=== PATIENT | female | born 1945 | race African-American/Black ===

== ENCOUNTER 2019-11-14 07:28 | Outpatient (CLI) | payer MEDICAID, SELFPAY ==
--- NOTE | ~2019-11-14 | MR_ITS ---
EXAMINATION: MR brain/brain stem wo con DATE: 11/14/2019 09:01 INDICATION: Headache. TECHNIQUE: Magnetic resonance imaging (MRI) of the brain and brainstem was performed without intraven ous contrast. Sequences included sagittal and axial T1-weighted FSE, axial diffusion-weighted FS EPI, axial T2*-weighted GRE, axial T2-weighted FLAIR Propeller, and axial T2-weighted Propeller. Apparent diffusion coefficient (ADC) maps were created. COMPARISON: Head CT 11/14/2019, brain MRI 05/28/2012 FINDINGS: There is chronic volume loss in right temporoparietal occipital region with old blood produ cts. There is ex vacuo dilatation of right lateral ventricle. There is no acute ischemic infarct or a bnormal mass lesion. There are scattered areas of nonspecific increased T2-weighted signal intensity in the cerebral white matter and owen. There are likely changes of ocular lens replacement surgeries. The paranasal sinuses are clear. The mastoid air cells are normal. IMPRESSION: 1. Chronic encephalomalacia involving right temporoparietal occipital region. 2. Worsened moderate nonspecific cerebral white matter disease and pontine disease, which likely repr esents chronic small vessel ischemic disease. Reviewed, dictated and finalized at location A. IMPRESSION: 1. Chronic encephalomalacia involving right temporoparietal occipital region. 2. Worsened moderate nonspecific cerebral white matter disease and pontine dise ase, which likely represents chronic small vessel ischemic disease.
--- NOTE | ~2019-11-14 | CT_ITS ---
EXAMINATION: CTA brain carotid DATE: 11/14/2019 08:53 INDICATION: Headache. TECHNIQUE: Computed tomographic angiography (CTA) of the head was performed without and with 100 mL O mnipaque-350 intravenous contrast. CTA of the neck was performed with intravenous contrast. Automated exposure control and iterative reconstruction technique were employed. The dose-length product was 1 509.45 mGy-cm. Maximum intensity projection and volume rendered 3D-reconstructions were created by josé luis gastelum technologist on a separate workstation. COMPARISON: Brain MRI 11/14/2019, head CT 07/27/2019 FINDINGS: HEAD CTA: There is chronic volume loss involving the right temporoparietal occipital region. There ar e scattered areas of low attenuation in the cerebral white matter and owen. There is no intracranial hemorrhage, acute infarction, or abnormal intracranial mass lesion. There is ex vacuo dilatation of r ight lateral ventricle. There are likely changes of ocular lens replacement surgeries. The paranasal sinuses are clear. The mastoid air cells are normal. The vertebral arteries are codominant. There is no significant stenosis of basilar artery. There is total occlusion of right P1 posterior cerebral ar jerica segment. The posterior communicating arteries are normal. There is no significant stenosis of th e anterior or middle cerebral arteries. Anterior communicating artery is normal. There is no aneurysm . NECK CTA: There are no pathologically enlarged lymph nodes. There is no significant stenosis of the v ertebral arteries. There is mild plaque in the proximal internal carotid arteries. There is 0% steno sis of the proximal right internal carotid artery relative to normal distal artery lumen diameter (NA SCET criteria). There is 0% stenosis of the proximal left internal carotid artery relative to normal distal artery lumen diameter. There is moderate cervical spondylosis. IMPRESSION: 1. Chronic encephalomalacia involving right temporoparietal occipital region. 2. 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 3. 0% stenosis of the proximal internal carotid arteries relative to normal distal artery lumen diame ters (NASCET criteria). Reviewed, dictated and finalized at location A. IMPRESSION: 1. Chronic encephalomalacia involving right temporoparietal occipital region. 2. 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 3. 0% stenosis of the proximal internal carotid arteries relative to normal dis arminda artery lumen diameters (NASCET criteria).
[2019-11-14 08:13] LABS: Estimated Glomerular Filt Rate > 60
== END 2019-11-14 07:29 | disposition home or self-care (01) ==
PROVIDERS: PCP Internal Medicine Infectious Disease; Visit Provider Psychiatry & Neurology Neurology
DX: R51 Headache (principal); G93.89 Other specified disorders of brain; I66.21 Occlusion and stenosis of right posterior cerebral artery; R90.82 White matter disease, unspecified
CPT/HCPCS: 36415; 70496; 70498; 70551; Q9967

== ENCOUNTER 2021-08-05 08:12 | Outpatient (CLI) | payer MEDICAID, SELFPAY ==
--- NOTE | 2021-08-05 | ECG_ITS ---
Measurements Intervals [place] Rate: 68 P: 69 AK: 233 QRS: 2 QRSD: 76 T: 52 QT: 376 QTc: 401 Interpretive Statements SINUS RHYTHM WITH FIRST DEGREE AV BLOCK BASELINE ARTIFACT- I, II, III, AVR, AVL, AVF, V6 ABNORMAL ECG Electronically Signed On 08-05-2021 9:18:01 THEATRICAL VARIETY AGENT by Hiro Mi D.O.
[2021-08-05 09:27] LABS: Hematocrit 39.5 % (37.0-47.0); Hemoglobin 12.3 g/dL (12.0-15.0); Mean Corpuscular HGB Conc 31.1 g/dl (32-36); Mean Corpuscular Hemoglobin 27.3 pg (26-34); Mean Corpuscular Volume 87.6 fl (80-100); Mean Platelet Volume 12.4 fl (7.4-10.4); Platelet Count Result 132 k/mm3 (150-375); Red Blood Count 4.51 M/mm3 (4.2-5.4); Red Cell Distribution Width 14.6 % (11.5-14.5); White Blood Count 7.7 K/mm3 (4.5-10.0)
[2021-08-05 09:41] LABS: Anion Gap 9 mmol/L (8-16); Blood Urea Nitrogen 16 mg/dL (7-17); Calcium 9.4 mg/dL (8.4-10.2); Carbon Dioxide 27 mmol/L (22-30); Chloride 103 mmol/L (98-107); Estimated Glomerular Filt Rate > 60; Glucose 103 mg/dL (65-110); Potassium 4.1 mmol/L (3.4-5.0); Sodium 139 mmol/L (137-145)
== END 2021-08-05 08:13 | disposition home or self-care (01) ==
PROVIDERS: PCP Internal Medicine Infectious Disease; Visit Provider Orthopaedic Surgery
DX: Z01.818 Encounter for other preprocedural examination (principal); Z51.81 Encounter for therapeutic drug level monitoring; Z79.899 Other long term (current) drug therapy
CPT/HCPCS: 36415; 80048; 85027; 93005

== ENCOUNTER 2022-09-28 15:20 | Emergency (ER) | payer MEDICAID, SELFPAY ==
[2022-09-28] VITALS (28 sets, daily range): BP systolic 167–195; BP diastolic 79–125; PULSE 83–89; RESP 14–20; TEMP 36.3–36.8; O2SAT 91–99
--- NOTE | ~2022-09-28 | CT_ITS ---
EXAMINATION: CT brain wo con DATE: 09/28/2022 16:46 INDICATION: fall, head injury . TECHNIQUE: Computed tomography (CT) of the head was performed without intravenous contrast. The mA wa s adjusted according to patient size. Iterative reconstruction technique was employed. The dose-lengt h product was 605.33 mGy-cm. COMPARISON: None. FINDINGS: No acute intracranial hemorrhage or extra-axial fluid collection. No hydrocephalus, mass, or herniation. No acute ischemic infarct. Unremarkable dural venous sinus attenuation. No acute osseous abnormality. Right frontal scalp swelling/hematoma. The aerated spaces are clear. Moderate atrophy and chronic white matter change. Atherosclerotic intracranial calcification. Left ba jennifer ganglia calcification. Tiny, focal basal ganglia lacunar infarcts. Right temporoparietal encephal omalacia. Ex vacuo dilation of the right lateral ventricle. Bilateral lens replacements. IMPRESSION: No acute intracranial process. Reviewed, dictated and finalized at location K.
--- NOTE | ~2022-09-28 | CT_ITS ---
EXAMINATION: CT facial & cervical spine wo DATE: 09/28/2022 16:48 INDICATION: fall, head injury, hematoma to R eyebrow TECHNIQUE: Computed tomography (CT) of the maxillofacial region and cervical spine was performed with out intravenous contrast. Automated exposure control and iterative reconstruction technique were empl oyed. The dose-length product was 546.31 mGy-cm. COMPARISON: CT C-spine 07/27/2019 FINDINGS: CERVICAL: Vertebral Body Alignment: Intact. Reversed lordosis centered at C4. Craniocervical and atlantoaxial alignment: Moderate degenerative change. Alignment intact. Osseous structures/fracture: Scattered stable lytic lesions. No evidence of acute fracture. Cervical soft tissues: The paraspinal soft tissues planes are maintained. Degenerative changes: Multilevel degenerative disc disease. Multilevel mild facet arthropathy. No sev ere neural foraminal narrowing. 5 and 4 mm central protrusions at C3-4 and C4-5, respectively, causin g moderate-severe central canal stenosis. FACE: Soft Tissues: Right frontal soft tissue swelling/contusion. Facial bones: No acute fracture. No lytic or blastic process. Eyes: The globes are intact. The soft tissue planes of the orbits are maintained. Bilateral lens re placements. Paranasal Sinuses: The visualized aerated spaces are clear. Foreign Bodies: No radiopaque foreign bodies. Other Findings: None. IMPRESSION: No acute fracture or traumatic malalignment in the cervical spine. No acute facial bone fracture. Red emonstration of scattered lytic lesions in the cervical spine, consider multiple myeloma or metastati c disease. Reviewed, dictated and finalized at location K. IMPRESSION: No acute fracture or traumatic malalignment in the cervical spine. No acute fac ial bone fracture. Redemonstration of scattered lytic lesions in the cervical s pine, consider multiple myeloma or metastatic disease.
--- NOTE | ~2022-09-28 | XR_ITS ---
EXAM: XR elbow RT min 3V DATE: 09/28/2022 20:30 HISTORY: fall, pain . COMPARISON: None available. FINDINGS: Decreased mineralization. No fracture or dislocation. No lytic or blastic lesion. Joint sp aces are maintained. No erosion or periosteal change. Soft tissues within normal limits. IMPRESSION: Severe osteopenia. No acute osseous finding in the right elbow. Reviewed, dictated and finalized at location K.
--- NOTE | ~2022-09-28 | XR_ITS ---
EXAM: XR wrist RT min 3V DATE: 09/28/2022 20:30 HISTORY: fall, pain . COMPARISON: Right wrist 11/02/2016. FINDINGS: Decreased mineralization. No fracture. Scapholunate widening. No lytic or blastic lesion. Scattered degenerative changes. No erosion or periosteal change. Soft tissues within normal limits. IMPRESSION: Scapholunate widening as can be seen with scapholunate ligament injury. No acute fracture . Reviewed, dictated and finalized at location K. IMPRESSION: Scapholunate widening as can be seen with scapholunate ligament inj ury. No acute fracture.
--- NOTE | ~2022-09-28 | XR_ITS ---
EXAMINATION: XR knee RT min 4V DATE: 09/28/2022 16:00 INDICATION: Right knee injury. TECHNIQUE: 4 views of right knee were obtained. COMPARISON: Right knee radiographs 02/15/16 FINDINGS: Bone alignment is normal. No fracture. There is mild tricompartmental osteoarthritis. No kn ee joint effusion. IMPRESSION: 1. Mild right knee osteoarthritis. Reviewed, dictated and finalized at location A.
--- NOTE | ~2022-09-28 | XR_ITS ---
EXAMINATION: XR shoulder RT min 2V DATE: 09/28/2022 16:01 INDICATION: Right shoulder injury. TECHNIQUE: 3 views of right shoulder were obtained. COMPARISON: Right shoulder radiographs 03/30/2010 FINDINGS: There is a comminuted fracture of proximal right humerus with involvement of the surgical n sangeetha and articular surface. At the surgical neck, the distal fracture fragment demonstrates impaction. The glenohumeral joint is normal. There are likely changes of distal clavicle resection. IMPRESSION: 1. Comminuted two-part fracture of proximal right humerus. Reviewed, dictated and finalized at location A.
[2022-09-28] MEDS: ONDANSETRON INJ 4 MG/2 ML VIAL IV PUSH (20:05)
[2022-09-28] MEDS: MORPHINE SULFATE (*CRX) 4 MG/ML INJ IV PUSH ×2 (20:05→20:57)
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
--- NOTE | 2022-09-28 21:13 | PC.NURSE ---
Sling applied to right arm. PMS intact pre and post placement.
--- NOTE | 2022-09-28 21:18 | PC.NURSE ---
Notified Aviva HANDY of patient blood pressure 195/100. ROZINA to order home dose of BP meds.
[2022-09-28] MEDS: carvediloL 12.5 MG TABLET PO (21:27)
[2022-09-28] MEDS: KETOROLAC 15 MG/ML VIAL (*BKC) IV PUSH (22:19)
[2022-09-28] MEDS: HYDROcodone/acetaminophen (*CRX) 5-325 MG TABLET 1 TAB PO (22:20)
[2022-09-29 00:08] VITALS: BP 170/66; PULSE 84; RESP 18; O2SAT 98
== END 2022-09-29 00:05 | disposition home or self-care (01) ==
PROVIDERS: Emergency Provider Physician Assistant; PCP Internal Medicine Infectious Disease
DX: S42.201A Unspecified fracture of upper end of right humerus, initial encounter for closed fracture (principal); S63.501A Unspecified sprain of right wrist, initial encounter; S83.91XA Sprain of unspecified site of right knee, initial encounter; S00.83XA Contusion of other part of head, initial encounter; V00.831A Fall from motorized mobility scooter, initial encounter; Y92.89 Other specified places as the place of occurrence of the external cause
CPT/HCPCS: 70450; 70486; 72125; 73030; 73080; 73110; 73564; 96374; 96375; 96376; 99284; A4565; A9270; J1885; J2270; J2405

== ENCOUNTER 2023-06-28 01:07 | Day surgery (SDC) | payer MEDICAID, SELFPAY ==
--- NOTE | 2023-06-22 12:16 | PM.IMHP ---
H&P: HPI History of Present Illness Date/Time: 06/22/23 12:16 Chief Complaint: Patient has a trigger finger left 3rd. Narrative: Patient has progressive symptoms of catching locking and pain at the base of the 3rd finger she has mechanically have release finger times. She has a trigger finger left 3rd. She has had previous surgery on her right hand for trigger finger. [facility] Past Medical History Medical History (Updated 06/21/23 @ 13:15 by Juan Durán MD) Headache Hypertension Obesity Tubal ligation evaluation Surgical History Surgical History (Updated 06/21/23 @ 12:53 by Annelise Breen CMA) History of carpal tunnel surgery of right wrist Dr Durán History of hand surgery Right hand trigger finger release History of orthopedic surgery History of shoulder surgery Right RTC- Dr Durán History of splenectomy Family History Family History (Updated 06/21/23 @ 12:53 by Annelise Breen CMA) Mother Hypertension Heart disease Social History Social History (Updated 06/21/23 @ 12:54 by Annelise Breen CMA) Smoking status: Never smoker Alcohol intake: never Substance use type: does not use Lack of Transportation: No Lack of Food: Sometimes True Current Housing: I Do Not Have Housing Concerned About Future Housing: No Difficulty Paying Gas/Electric Bills: No Difficulty Paying for Meds: No Currently Unemployed: No Education: Decline to Answer Difficulty w/ Childcare or Family Care: No Living arrangements: alone Occupation/Education: retired Gender identity (if verbalized by the patient): Female Meds Home Medications and Allergies Home Medications Medication Instructions Recorded Confirmed Type aripiprazole 5 mg tablet 5 mg PO DAILY 09/28/22 06/21/23 History carvedilol 12.5 mg tablet 12.5 mg PO BID 09/28/22 06/21/23 History Allergies Allergy/AdvReac Type Severity Reaction Status Date / Time No Known Allergies Allergy Verified 06/21/23 12:49 Exam Narrative: On exam she is tender at the base of the 3rd finger. She has catching and locking and pain with manipulation. Neurologically she appears to be grossly intact. She has a healed scar on the right hand from previous trigger finger surgery. Eyes: General: appearance normal, both eyes and all related structures Neck: Neck: supple Resp: Effort & Inspection: normal respiratory effort Cardio: Rate: regular rate Rhythm: regular rhythm Assessment and Plan Assessment and plan (1) Trigger finger, left middle finger: Code(s): M65.332 - Trigger finger, left middle finger Status: Acute Assessment and Plan: The patient has a trigger finger left 3rd. It is she has had a previous release on the right hand is done well with that. She has mechanical symptoms of catching and locking. She has failed conservative treatment to date. Will proceed with release A1 pavel proceed as indicated discussed.
--- NOTE | 2023-06-26 09:26 | PC.NURSE ---
Report to the Outpatient Waiting Room, entrance under the green pavilion located off [facility], at time __0700 on date 06/28/23 . Planned Procedure Time: _0900 . Time changes happen often and if your time is changed the preop area will call you the afternoon before. - You and your visitor will be asked to self-screen and do not enter if you have any COVID symptoms. - A mask is optional within the hospital at this time. Patients may have clear liquids (water, carbonated beverages, clear teas, apple juice) until 3 hours prior to surgery ( 6 AM )with a maximum of 20 ounces. - No food from midnight until time of surgery Take the following medications with a SIP of water the morning of surgery: __ARIPIPRAZOLE,CARVEDILOL,ISOSORBIDE, SERTRALINE DO NOT STOP ANY OF YOUR OTHER PRESCRIPTION MEDICATIONS PRIOR TO SURGERY ?EXCEPT THE FOLLOWING Medications to discontinue per physician __ALL VITAMINS AND SUPPLEMENTS 3 DAYS PRE OP.LAST DOSE 06/25/23 Please no make-up, nail luxembourgish, hairspray, perfume, deodorant, or body powder the day of surgery. No jewelry (including any body piercings) or valuables the day of surgery, leave them at home. Please take a shower or bath the night before, or the morning of, surgery with an antibacterial soap. Wear comfortable, loose fitting clothing. Children are encouraged to wear pajamas. - Jewelry must be removed prior to entering the operating room. Rings and piercings that are not removed may be cut off. - The hospital will not accept responsibility for valuables. - Please leave all valuables, including medications, at home the day of surgery. If you are going home after surgery, a licensed log driver must drive you home. - NO public transportation without another adult if you receive anesthesia. - We recommend that an adult stay with you for 24 hours following discharge. - We also recommend that you do not drive, make important decision, drink alcoholic beverages, or take any drugs that were not prescribed by your health care provider for at least 24 hours after your discharge time. For Pediatric surgeries, we recommend two adults accompany the child home. Follow any additional instructions given to you from your surgeon. If you or anyone in your household have experienced Covid symptoms in the past week, please notify your surgeon or the nurse liaison at the phone number below for possible testing. Telephone instructions given to __PATIENT and asked if any additional questions and then verbalized understanding. Patient advised to call surgeon office or pre surgery nurse liaison [phone] if any additional questions.
[2023-06-26 09:43] VITALS: BMI 33.2
--- NOTE | 2023-06-28 07:00 | WPDHPUPDATE1 ---
History and Physical Update Update Date/Time: 06/28/23 07:00 History and Physical has been reviewed, including an updated exam of the patient. There are NO changes in the patient's condition. Risks, benefits, and alternatives have been discussed and questions answered. Patient agrees to proceed with procedure.
[2023-06-28 07:11] VITALS: BP 178/85; PULSE 80; RESP 18; TEMP 36.3; O2SAT 97
[2023-06-28] MEDS: ACETAMINOPHEN 500 MG TABLET 1000 MG PO (07:48)
[2023-06-28] MEDS: KETOROLAC 15 MG/ML VIAL (*BKC) IV PUSH (07:48)
[2023-06-28 08:03] LABS: Anion Gap 6 mmol/L (8-16); Blood Urea Nitrogen 24 mg/dL (7-17); Calcium 9.4 mg/dL (8.4-10.2); Carbon Dioxide 27 mmol/L (22-30); Chloride 108 mmol/L (98-107); Estimated CRCL calculation 59 ml/min; Estimated Glomerular Filt Rate > 60; Glucose 105 mg/dL (65-110); Potassium 3.8 mmol/L (3.4-5.0); Sodium 141 mmol/L (137-145)
--- NOTE | 2023-06-28 08:06 | WPDANESEPPF ---
Anes - Initial Pre Proc Eval Procedure: Operation Date: 06/28/23 09:00 Proposed Procedures p Release Left Middle Finger A-1 Krystian - Juan Durán MD Date/Time: 06/28/23 08:06 Surgeon: Juan Durán MD Pre Op Diagnosis: Lt Third Trigger Finger Patient Data Age: 77 Gender: F Height: 1.52 m Weight: 77.2 kg Allergies Allergy/AdvReac Type Severity Reaction Status Date / Time No Known Allergies Allergy Verified 06/28/23 08:05 Home Medications Medication Instructions Recorded Confirmed Type carvedilol 12.5 mg tablet 12.5 mg PO BID 09/28/22 06/28/23 History acetaminophen 500 mg capsule 1,000 mg PO Q6H PRN Pain 06/26/23 06/28/23 History aripiprazole 2 mg tablet 2 mg PO DAILY 06/26/23 06/28/23 History aspirin 81 mg tablet,delayed 81 mg PO DAILY 06/26/23 06/28/23 History release (Adult Low Dose Aspirin) cholecalciferol (vitamin D3) 25 25 mcg PO DAILY 06/26/23 06/28/23 History mcg (1,000 unit) tablet isosorbide mononitrate 30 mg 30 mg PO DAILY 06/26/23 06/28/23 History tablet,extended release 24 hr losartan 100 mg tablet 100 mg PO DAILY 06/26/23 06/28/23 History mirabegron 25 mg tablet,extended 25 mg PO DAILY 06/26/23 06/28/23 History release 24 hr (Myrbetriq) multivitamin 1 tablet PO DAILY 06/26/23 06/28/23 History pravastatin 20 mg tablet 20 mg PO DAILY 06/26/23 06/28/23 History sertraline 100 mg tablet 100 mg PO BID 06/26/23 06/28/23 History spironolactone 25 mg tablet 50 mg PO DAILY 06/26/23 06/28/23 History Laboratory Tests 06/28/23 07:36 Sodium 141 mmol/L (137-145) Potassium 3.8 mmol/L (3.4-5.0) Chloride 108 H mmol/L (98-107) Carbon Dioxide 27 mmol/L (22-30) Anion Gap 6 L mmol/L (8-16) BUN 24 H mg/dL (7-17) Creatinine 0.60 L mg/dL (0.7-1.0) Estim Creat Clear Calc 59 ml/min Estimated GFR > 60 (59 - ) Glucose 105 mg/dL (65-110) Calcium 9.4 mg/dL (8.4-10.2) Patient hx anesthesia problems: none Family hx anesthesia problems: none Results Review: All pre-operative results and documents have been reviewed as part of the pre-operative evaluation. PMFSH Past Medical History Medical History Headache Hypertension Obesity Tubal ligation evaluation Surgical History Surgical History History of carpal tunnel surgery of right wrist Dr Durán History of hand surgery Right hand trigger finger release History of orthopedic surgery History of shoulder surgery Right RTC- Dr Durán History of splenectomy Family History Family History Mother Hypertension Heart disease Social History Social History Smoking status: Never smoker Alcohol intake: never Substance use type: does not use Lack of Transportation: No Lack of Food: Sometimes True Current Housing: I Do Not Have Housing Concerned About Future Housing: No Difficulty Paying Gas/Electric Bills: No Difficulty Paying for Meds: No Currently Unemployed: No Education: Decline to Answer Difficulty w/ Childcare or Family Care: No Living arrangements: alone Occupation/Education: retired Gender identity (if verbalized by the patient): Female Spiritual care concerns: No Anes - Eval Final PreProcedure Day of Procedure 06/28/23 08:06 Patient weight: obese Heart: regular rate and rhythm Lungs: clear to auscultation Airway: Mallampati scale class II Neurological: alert and oriented Last oral intake: >/= 8 hours ASA classification: III Emergent: no Anesthetic plan: proceed Anesthesia type and monitoring: general GIVS and standard monitoring Results Review: All pre-operative results and documents have been reviewed as part of the pre-operative evaluation. Informed Consent: The patient's
[2023-06-28] MEDS: ceFAZolin 2 GM/D5W 50 ML 2 GM/50 ML BAG IVPB (08:26)
[2023-06-28] MEDS: LIDOCAINE HCL 1% LOCAL INJ 20 ML VIAL 10 ML INFILTRATE (08:39)
--- NOTE | 2023-06-28 08:45 | W.PM.PROC2 ---
Procedure Note - Detailed Date of Procedure 06/28/23 Pre-op Diagnosis Left Third Trigger Finger Post-op Diagnosis Same Procedure Performed Release A1 Pavel Left 3rd finger Surgeon Juan Durán MD Anesthesia General Indications Catching and Locking Findings Tight A1 pavel Description of Procedure Patient brought to operating room 7. A general anesthetic was administered. She was sterilely prepped and draped in usual manner. Local infiltrate placed lung line of intended incision, in line with the distal palmar crease. The local infiltrate placed. Dissection gently carried down to the A1 pavel. The neurovascular bundles were protected. This was released under direct vision full excursion of the tendon without catching was a obtain. Wounds irrigated hemostasis obtained and closed with the 3-0 Prolene. Sterile dressing applied. Estimated Blood Loss 1 Drains No Packing No Pathology None sent Complications No immediate complications Condition Stable Disposition PACU [facility] Billing Surgery - Charge Forward: Surgery Billing ([id number] Trigger Finger LEFT 3rd)
[2023-06-28 08:52] VITALS: BP 92/43; RESP 14; O2SAT 97
[2023-06-28] MEDS: LACTATED RINGERS 1,000 ML 30 ML IV CONT (08:52)
[2023-06-28 09:20] VITALS: BP 144/64; PULSE 71; RESP 16
[2023-06-28 09:50] VITALS: BP 164/72; PULSE 74; RESP 16
[2023-06-28] MEDS: oxyCODONE HCL (*CRX) 2.5 MG TAB IR PO (10:08)
== END 2023-06-28 10:16 | disposition home or self-care (01) ==
PROVIDERS: Anesthesiology; PCP Internal Medicine Infectious Disease; Visit Provider Orthopaedic Surgery
PROC: (CPT 26055; principal; 2023-06-28 09:00)
DX: M65.332 Trigger finger, left middle finger (principal); Z79.82 Long term (current) use of aspirin; I10 Essential (primary) hypertension; E66.9 Obesity, unspecified; Z68.34 Body mass index [BMI] 34.0-34.9, adult
CPT/HCPCS: 26055; 36415; 80048; A9270; J0690; J1885; J2704; J7120

== ENCOUNTER 2024-09-04 00:31 | Day surgery (SDC) | payer MEDICAID, SELFPAY ==
[2024-08-23 09:24] VITALS: BMI 33.5
--- NOTE | 2024-08-23 09:36 | PC.NURSE ---
Report to the Outpatient Waiting Room, entrance under the green pavilion located off [facility], at time _09:30am on date __09/04/24 . Planned Procedure Time: __11:30am .? Time changes happen often and if your time is changed the preop area will call you the afternoon before. - You and your visitor will be asked to self-screen and do not enter if you have any COVID symptoms. Please call surgeon if you need to reschedule. - A mask is optional within the hospital at this time. Patients may have clear liquids (water, carbonated beverages, clear teas, apple juice) until 3 hours prior to surgery with a maximum of 20 ounces. - No food from midnight until time of surgery and no smoking, or chewing tobacco (or any form of nicotine). No chewing gum, candy or mints.(0830am) Take only the following medications with a SIP of water on the morning of surgery: Coreg, Isorsorbide, Sertaline, Aripiprazole DO NOT STOP ANY OF YOUR OTHER PRESCRIPTION MEDICATIONS PRIOR TO SURGERY EXCEPT THE FOLLOWING Hold all vitamins and supplements for 3 days per anesthesiologist-date to take last dose - 08/31/24 Medications to discontinue per physician _Aspirin for 5 days prior to surgery per Dr Durán Date to take last dose 08/29/24 Please no make-up, nail tunisian, hairspray, perfume, deodorant, or body powder the day of surgery.? No jewelry (including any body piercings) or valuables the day of surgery, leave them at home.? Please take a shower or bath the night before, or the morning of, surgery with an antibacterial soap.? Wear comfortable, loose fitting clothing.? - Jewelry must be removed prior to entering the operating room.? Rings and piercings that are not removed may be cut off. - The hospital will not accept responsibility for valuables.? - Please leave all valuables, including medications, at home the day of surgery. If you are going home after surgery, a licensed over the road driver must drive you home.? - NO public transportation without another adult if you receive anesthesia. - We recommend that an adult stay with you for 24 hours following discharge. - We also recommend that you do not drive, make important decision, drink alcoholic beverages, or take any drugs that were not prescribed by your health care provider for at least 24 hours after your discharge time. Follow any additional instructions given to you from your surgeon. Telephone instructions given to __Patient and asked if any additional questions and then verbalized understanding. Patient advised to call surgeon office or pre surgery nurse liaison [phone] if any additional questions.
--- NOTE | 2024-09-03 08:17 | PM.IMHP ---
H&P: HPI History of Present Illness Date/Time: 09/03/24 08:17 Chief Complaint: Patient has a trigger thumb left. She has mechanical locking and catching of her thumb. This has been unresponsive to conservative treatment. She would like to consider surgical release. Review of Systems Musculoskeletal: Musculoskeletal: Reports arthralgias and Reports joint swelling PMFSH Past Medical History Medical History Hypertension Headache Tubal ligation evaluation Obesity Surgical History Surgical History History of hand surgery Right hand trigger finger release History of carpal tunnel surgery of right wrist Dr Durán History of shoulder surgery Right RTC- Dr Durán History of splenectomy History of orthopedic surgery Family History Family History (Updated 08/15/24 @ 10:15 by Dilia Byers CMA) Mother Hypertension Heart disease Cerebrovascular accident Social History Social History (Updated 08/15/24 @ 10:13 by Judit Canales CMA) Smoking status: Never smoker Alcohol intake: never Substance use: never Substance use type: does not use Do You Feel Safe in your Home?: Yes Lack of Transportation: No Lack of Food: Sometimes True Current Housing: I Have Housing Concerned About Future Housing: No Difficulty Paying Gas/Electric Bills: No Difficulty Paying for Meds: No Currently Unemployed: No Education: High School Diploma/GED Difficulty w/ Childcare or Family Care: No Living arrangements: alone Occupation/Education: retired Gender identity (if verbalized by the patient): Female Spiritual care concerns: No Meds Home Medications and Allergies Home Medications ?Medication ?Instructions ?Recorded ?Confirmed ?Type carvedilol 12.5 mg tablet 12.5 mg PO BID 09/28/22 08/23/24 History acetaminophen 500 mg capsule 1,000 mg PO Q6H PRN Pain 06/26/23 08/23/24 History aripiprazole 2 mg tablet 2 mg PO BID 06/26/23 08/23/24 History aspirin 81 mg tablet,delayed 81 mg PO DAILY 06/26/23 08/23/24 History release (Adult Low Dose Aspirin) cholecalciferol (vitamin D3) 25 25 mcg PO DAILY 06/26/23 08/23/24 History mcg (1,000 unit) tablet isosorbide mononitrate 30 mg 30 mg PO DAILY 06/26/23 08/23/24 History tablet,extended release 24 hr losartan 100 mg tablet 100 mg PO DAILY 06/26/23 08/23/24 History mirabegron 25 mg tablet,extended 25 mg PO DAILY 06/26/23 08/23/24 History release 24 hr (Myrbetriq) multivitamin 1 tablet PO DAILY 06/26/23 08/23/24 History pravastatin 20 mg tablet 20 mg PO DAILY 06/26/23 08/23/24 History sertraline 100 mg tablet 100 mg PO BID 06/26/23 08/23/24 History spironolactone 25 mg tablet 50 mg PO DAILY 06/26/23 08/23/24 History Allergies Allergy/AdvReac Type Severity Reaction Status Date / Time No Known Allergies Allergy Verified 08/23/24 09:18 Exam Narrative: Patient has prominence of swelling at the base of the left thumb. Neurologically she appears to be intact. She has mechanical catching and locking. Eyes: General: appearance normal, both eyes and all related structures Neck: Neck: supple Resp: Effort & Inspection: normal respiratory effort Cardio: Rate: regular rate Rhythm: regular rhythm Assessment and Plan Assessment and plan (1) Trigger thumb of left hand: Code(s): M65.312 - Trigger thumb, left thumb Status: Acute Assessment and Plan: Patient has a trigger thumb left. Spent unresponsive to conservative treatment. She would like to consider surgical release. I have discussed this with her risks, benefits, limitations, and alternatives in detail. Will proceed per her request.
--- OUTSIDE RECORDS SUMMARY | 2024-09-04 00:33 | XMS_ITS | Data Portability ---
Author Organization [facility] [place], Main Office Address [address] [place] [address] Care Team Providers Care Tube Station Attendant Name Role Phone ALL MORALEZ Primary Care Provider ALL MORALEZ Referring Provider Assessment Encounter Date Assessment Date Assessment LastModified by Organization Details LastModified Time 09/22/2022 09/22/2022 Patient returns knee pain right. Pain is localized right knee mostly medially worse with activity somewhat relieved by rest she does have some mechanical symptoms but also has some degenerative change she got good relief from the injection last time and and the medicine and she would like to continue conservative treatment this does not work next step would be an MRI scan of the knee. I injected the right knee with 20 mg Kenalog 4 cc 1% lidocaine will try tramadol or prescription drug management for pain and inflammation. I will see her back in a month for follow-up no better MRI right knee. [email or web address] Not available 09/22/2022 10:36:32 09/26/2022 09/26/2022 This note is dictated and transcribed by [employer]. Stone Crusher Operator variances may occur. Despite proofreading, typographical errors may occur. Not available 09/26/2022 14:04:39 10/07/2022 10/07/2022 77-year-old female presenting for her right shoulder and right knee. She fell off a mobility scooter on 09/28/2022, landing on her right side. She was seen at hospital and diagnosed with proximal humerus fracture, and she also reports pain in her knee. She has not had any treatments besides the narcotics that she was given at the hospital. She did have a previous rotator cuff repair on that side with Dr. Durán about 3 4 years ago. She reports her shoulder was not bothering her prior to the fall. Review of systems per patient questionnaire. Physical exam: She has tenderness palpation proximal humerus as well as some ecchymosis and swelling. She has some soreness throughout her right upper extremity as well. For the right knee, she has tenderness palpation over the lateral knee over the joint line and proximal fibula. Range of motion 0-130. Nonantalgic gait. Negative Garrett's. Ligaments stable. X-rays of the shoulder, elbow, wrist, and knee were reviewed, demonstrated a valgus impacted proximal humerus fracture. No fractures seen elsewhere. Diagnoses and treatment options were discussed in detail with the patient. We will begin her with a cuff and collar sling for her shoulder. We will also give her a prescription for meloxicam to help with the pain. She should continue icing and elevating. We discussed that she should wean off of the narcotic pain medications. With regards to her knee, we will send her to physical therapy. The meloxicam should also help with that as well. Will have her follow-up in 2-3 weeks for recheck. Not available 10/07/2022 11:30:16 11/04/2022 11/04/2022 77-year-old female presenting for follow-up of her right shoulder. She has a proximal humerus fracture being treated non operatively. She took herself out of the cuff and collar sling and put herself back in the regular shoulder sling. She reports pain is better. Rate is 5 out 10. She is is not taking any medications right now. She also has a new complaint of her left 5th middle finger. The finger had been bothering her for a while, but was aggravated after the fall that she had. It is located over the PIP joint. She has pain and stiffness with movement. No tenderness palpation of the shoulder. No pain with gentle range of motion. She has full range of motion of the elbow, wrist, and fingers on the right side. With regards her left hand, she has tenderness palpation of middle finger PIP. She has full extension, but is able to nearly make a full fist. She has no triggering and no tenderness over the flexor. X-rays of the shoulder on the right were obtained reviewed, demonstrating a proximal humerus fracture with maintenance of alignment. X-rays of the left middle finger were also obtained and reviewed, demonstrating no acute bony abnormalities. She does have some joint space narrowing and degenerative changes. We will continue conservative management for the shoulder. We will send her to physical therapy to work on some mobility and function of the shoulder. We also gave her refill of her meloxicam. For her finger, the meloxicam will help with that as well. Also recommended icing and Voltaren. She may continue activities as tolerated for the finger. Follow-up in 6 weeks. Not available 11/04/2022 12:15:20 01/19/2023 01/19/2023 Patient presents hand pain left. She jammed her 3rd finger at the PIP joint. She has got reasonable motion and strength the finger appears stable more pain with extension flexion I think she jammed her finger and strained the ligaments. This should heal with time. Recommend she continue to use it. For prescription drug management will try Voltaren for pain and inflammation. I will see her back in a month for follow-up. If she has any changes or problems she will call discussed. [email or web address] Not available 01/19/2023 13:18:22 Plan of Treatment Reminders Order Date Submit Date Provider Last Modified By Organization Details Last Modified Time Details Appointments None recorded. Lab None recorded. Referral physical therapist referral - Please schedule pt for R shoulder. thanks [email or web address] [facility], [address] [facility] [address], [place], [address], 08:52:32 physical therapist referral - Please schedule pt for R knee. thanks [facility] [place] [facility], [address], [place], [address], 13:55:08 Procedures injection/a spiration joint/bursa (PROC) - in office procedure, administere d by provider 2022 023 allison Not available 10:37:20 Surgeries None recorded. Imaging XR, hand, 3 or more view 2022 023 [email or web address] [facility] [place], [address], [place], [address], 13:41:13 XR, shoulder 2022 023 [email or web address] [facility] [place], [address], [place], [address], 3 15:54:17 Medication Orders diclofenac sodium 75 mg tablet,carolyn yed release 2022 023 [email or web address] [id number], [address] [place], [address], 13:19:03 Mobic 15 mg tablet 2022 023 [email or web address] [facility] In [facility], [address] [place] [address], [address], 3 15:56:08 Mobic 15 mg tablet 2022 023 [email or web address] [facility] [address], [address], 3 12:31:26 Kenalog 10 mg/mL suspension for injection 2022 023 [email or web address] [facility] [address], [address], 3 10:48:51 ropivacaine (PF) 5 mg/mL (0.5 %) injection solution 2022 023 [email or web address] [facility] [address], [address], 3 10:49:20 tramadol 50 mg tablet 2022 023 MARK [facility] [address] In [address] [place] [place], [address], 10:54:45 Patient TargetsNo targets recorded. Patient Instructions Encounter Date Encounter Id Patient Instructions Last Modified By Organization Details Last Modified Time 09/26/2022 [id number] x-ray bilateral feet AP, MO, Lat-weightbearing- no fracture, normal bone density, no lytic lesion, no periosteal reaction, no foreign body, spurring of the calcaneus, mild joint space narrowing at the lesser digits and minor spurring of the dorsal midfoot joints without significant sclerosis, bone cystic changes, joint space narrowing impression- osteoarthritis Not available 09/26/2022 14:06:37 Reason for Referral Physical Therapist Referral for Pain of right knee joint R knee Please schedule pt for R knee. thanks Referring Physician: Juan Larry, Orthopedic Surgery, Encounter Date: 10/07/2022 Physical Therapist Referral for Pain of right shoulder joint R shoulder Please schedule pt for R shoulder. thanks Referring Physician: Juan Larry, Orthopedic Surgery, Encounter Date: 11/04/2022 Results Created Date Observation Date Name Description Value Unit Range Abnormal Flag Note LastModifiedBy Organization Detail LastModifiedTime 08/25/19 XR, knee, 3 view No observ ation record ed. [id number] [facility] [place] [address], [place], [address], 09/14/2022 02:59:32 10/01/1909/28/2022 XR, shoul buck, 2 or more view No observ ation record ed. Not Available 09/14 14:41:21 10/01/19 23 09/28/2022 XR, elbow , 3 or more view No observ ation record ed. Not Available 09/14 14:41:21 10/01/19 23 09/28/2022 XR, wrist , 3 or more view No observ ation record ed. Not Available 09/14 14:41:21 10/01/19 23 09/28/2022 XR, knee, 4 or more view No observ ation record ed. Not Available 09/14 14:41:21 11/05/19 23 XR, shoul buck No observ ation record ed. [email or web address] [facility] [place] [address], [place], [address], 11/04/2022 10:58:35 01/20/20 23 XR, hand, 3 or more view No observ ation record ed. [email or web address] [facility] [place] [address], [place], [address], 01/19/2023 13:18:37 Result Notes None recorded. Problems Name Problem SNOMED Code Status Onset Date Resolution Date Notes Provider Name and Address Organization Details Recorded Time Spinal enthesopat hy 91937959 Active Not Available [facility] 3 02:51:13 Disorder of shoulder 396073122 Active Not Available [facility] 3 02:51:13 Derangemen t of right knee 0452820884396 9109 Active 2021 Not Available [facility] 3 02:51:13 Pain in right sacroiliac joint 8285237866402 9107 Active 2021 Not Available [facility] 3 02:51:13 Disorder of sacrum 82949182 Active Not Available [facility] 3 02:51:13 Acquired trigger finger 2218602 Active Not Available [facility] 3 02:51:13 Spinal stenosis of lumbar region 19737832 Active 2021 Not Available [facility] 3 02:51:13 Radiothera py follow-up 522189570 Active Not Available [facility] 3 02:51:13 Localized, primary osteoarthr itis of the hand 002541486 Active Not Available [facility] 3 02:51:13 Wrist joint pain 143845850 Active Not Available [facility] 3 02:51:13 Shoulder joint pain 444142641 Active Not Available [facility] 3 02:51:13 Low back pain 196915717 Active 2021 Not Available [facility] 3 02:51:14 Tear of medial meniscus of knee 287965044 Active 2021 Not Available [facility] 3 02:51:14 Enthesopat hy of hip region 56631077 Active Not Available [facility] 3 02:51:14 Localized, primary osteoarthr itis of the wrist 177931371 Active Not Available [facility] 3 02:51:14 Pain in right foot 3966718743737 07 Active 2020 Not Available [facility] 3 02:51:14 Pain in right hip joint 8989298494414 02 Active 2021 Not Available [facility] 3 02:51:14 Osteoarthr itis of right knee joint 8375674620262 00 Active 2022 Not Available [facility] 3 02:51:14 Osteoarthr itis 249926925 Active Not Available [facility] 3 02:51:14 Pain of right knee joint 2434337253502 00 Active 2021 Not Available [facility] 3 02:51:14 Lumbosacra l spondylosi s without myelopathy 68489476 Active Not Available [facility] 3 02:51:15 Disorder of bursa of shoulder region 81896780 Active Not Available [facility] 3 02:51:15 Carpal tunnel syndrome 34485824 Active Not Available [facility] 3 02:51:15 Osteoarthr itis of midfoot 988431611 Active 2020 Not Available [facility] 3 02:51:15 Brachial neuritis 07237143 Active Not Available [facility] 3 02:51:15 Spinal stenosis in cervical region 44426289 Active 2021 Not Available [facility] 3 02:51:15 Dystrophia unguium 84863184 Active 2020 Not Available [facility] 3 02:51:15 Pain in limb 24160463 Active Not Available [facility] 3 02:51:15 Pain in both feet 8463695606779 9102 Active Maye Montero MA null, [facility] [employer] [facility] 3 10:57:25 Pain of right shoulder joint 8174830245731 9100 Active 2022 Melina Reddy ATC L null, [facility] [employer] [facility] 3 11:09:02 Closed fracture of proximal right humerus 9267175599635 9105 Active 2022 Juan Larry MD [address], [place], [address] , [facility] [employer] [facility] 3 11:30:35 Pain of left hand 5654552475702 03 Active 2022 Melina Reddy ATC L null, [facility] [employer] [facility] 3 11:46:19 Pain in finger of left hand 1987475779459 05 Active 2022 Juan Larry MD [address], [place], [address] , [facility] [employer] [facility] 3 12:15:31 Problem Notes None recorded. Procedures Surgical History Date Name Laterality Status Provider Name and Address Organization Details Recorded Time 3 Nail Debridement completed Roland Garcia DPM [address], [place], [address], [facility] [employer] [facility] 09/26/2022 11:28:31 3 Ortho - Cortisone Injection completed Juan Durán MD [address], [place], [address], [facility] [employer] [facility] 09/22/2022 10:35:27 Imaging Results Imaging Date Name Status LastModified by [facility] Details LastModified Time 2022 XR, knee, 3 view completed [id number] [facility] [place] [address], [place], [address], 09/14/2022 02:59:32 09/28/2022 XR, shoulder, 2 or more view completed Information not available 09/30/2022 14:41:21 09/28/2022 XR, elbow, 3 or more view completed Information not available 09/30/2022 14:41:21 09/28/2022 XR, wrist, 3 or more view completed Information not available 09/30/2022 14:41:21 09/28/2022 XR, knee, 4 or more view completed Information not available 09/30/2022 14:41:21 11/04/2022 XR, shoulder completed [email or web address] [facility] [place] [address] [facility] [address], [place], [address], 11/04/2022 10:58:35 01/19/2023 XR, hand, 3 or more view completed [email or web address] [facility] [place] [address] [facility] [address], [place], [address], 01/19/2023 13:18:37 Procedure Notes None recorded. Medical Equipment None Reported. Allergies No known drug allergies Medications Name Sig Start Date Stop Date Status Note LastModified by Organization Details LastModified Time quetiapine 25 mg tablet 09/22 completed Not Available Not Available Not Available cyclobenzap rine 10 mg tablet 04/02 completed Not Available Not Available Not Available furosemide 40 mg tablet 04/09 completed Not Available Not Available Not Available silver sulfadiazin e 1 % topical cream APPLY TO THE AFFECTED AREAS TOPICALLY D 04/09 completed Not Available Not Available Not Available fentanyl 50 mcg/hr transdermal patch 11/21 completed Not Available Not Available Not Available prednisone 10 mg tablet PLEASE SEE ATTACHED FOR DETAILED DIRECTION S 09/22 completed Not Available Not Available Not Available oxybutynin chloride ER 15 mg tablet,exte nded release 24 hr 09/22 completed Not Available Not Available Not Available doxycycline hyclate 100 mg capsule 11/21 completed Not Available Not Available Not Available carvedilol 12.5 mg tablet TAKE 1 TABLET BY MOUTH TWICE A DAY active Not Available Not Available No t Available trazodone 50 mg tablet 11/21 completed Not Available Not Available Not Available azithromyci n 250 mg tablet 04/02 completed Not Available Not Available Not Available ibuprofen 800 mg tablet 04/02 completed Not Available Not Available Not Available hydrocodone 5 mg-acetamin ophen 325 mg tablet TAKE 1 TABLET BY MOUTH EVERY 6 HOURS 09/22 completed Not Available Not Available Not Available bupivacaine HCl 0.5 % (5 mg/mL) injection solution Take 20 mg by injection route. 10/07 completed Not Available Not Available Not Available sertraline 100 mg tablet TAKE 1 TABLET TWICE A DAY BY MOUTH IN THE MORNING FOR 90 DAYS active Not Available Not Available No t Available clonazepam 1 mg tablet 04/02 completed Not Available Not Available Not Available acetaminoph en 300 mg-codeine 30 mg tablet TAKE 1 TABLET BY MOUTH EVERY DAY NEEDED 09/22 completed Not Available Not Available Not Available ciprofloxac in 500 mg tablet TAKE 1 TABLET BY MOUTH TWICE A DAY 04/02 completed Not Available Not Available Not Available morphine ER 30 mg tablet,exte nded release 11/21 completed Not Available Not Available Not Available hydrocodone 10 mg-acetamin ophen 325 mg tablet TAKE 1 TABLET BY MOUTH EVERY 8 HOURS NEEDED FOR PAIN 09/22 completed Not Available Not Available Not Available tramadol 50 mg tablet TAKE 2 TABLETS TWICE A DAY BY ORAL ROUTE NEEDED FOR 30 DAYS. active Not Available Not Available No t Available spironolact one 25 mg tablet TAKE 2 TABLETS BY MOUTH EVERY DAY active Not Available Not Available No t Available lidocaine-p rilocaine 2.5 %-2.5 % topical cream 04/02 completed Not Available Not Available Not Available prednisone 10 mg tablets in a dose pack Take 1 tab by mouth, 3 times a day for 3 daysTake 1 tab by mouth 2 times a day for 2 daysTake 1 tab by mouth once a day for 1 day 09/22 completed Not Available Not Available Not Available meloxicam 7.5 mg tablet 11/21 completed Not Available Not Available Not Available Mobic 15 mg tablet Take 1 tablet every day by oral route. 2022 active Not Available Not Available Not Avai lable amitriptyli ne 25 mg tablet 04/09 completed Not Available Not Available Not Available lorazepam 0.5 mg tablet 10/07 completed Not Available Not Available Not Available oxycodone-a cetaminophe n 10 mg-325 mg tablet 04/02 completed Not Available Not Available Not Available trazodone 100 mg tablet 09/22 completed Not Available Not Available Not Available ropinirole 0.25 mg tablet 09/22 completed Not Available Not Available Not Available Kenalog 10 mg/mL suspension for injection Take 20 mg by injection route. 10/07 completed [facility]: [phone] Not Available Not Available Not Available amlodipine 10 mg tablet TAKE 1 TABLET BY MOUTH ONCE DAILY 10/07 completed Not Available Not Available Not Available benzonatate 100 mg capsule TAKE ONE CAPSULE BY MOUTH EVERY 8 HOURS 07/01 completed Not Available Not Available Not Available morphine 30 mg immediate release tablet 04/02 completed Not Available Not Available Not Available hydrocodone 7.5 mg-acetamin ophen 325 mg tablet 1 tablet PO q4hrs for pain active Not Available Not Available No t Available cephalexin 500 mg capsule 09/28 completed Not Available Not Available Not Available trazodone 150 mg tablet TAKE 1 TABLET BY MOUTH EVERYDAY AT BEDTIME 09/22 completed Not Available Not Available Not Available divalproex ER 500 mg tablet,exte nded release 24 hr 10/07 completed Not Available Not Available Not Available metoprolol tartrate 50 mg tablet TAKE 1 TABLET BY MOUTH TWICE A DAY 09/22 completed Not Available Not Available Not Available progesteron e micronized 200 mg capsule 04/02 completed Not Available Not Available Not Available nitroglycer in 0.4 mg sublingual tablet PLEASE SEE ATTACHED FOR DETAILED DIRECTION S 09/22 completed Not Available Not Available Not Available gabapentin 300 mg capsule 07/01 completed Not Available Not Available Not Available diclofenac sodium 75 mg tablet,carolyn yed release TAKE 1 TABLET BY MOUTH TWICE A DAY active Not Available Not Available No t Available montelukast 10 mg tablet 04/02 completed Not Available Not Available Not Available morphine ER 15 mg tablet,exte nded release 11/21 completed Not Available Not Available Not Available pravastatin 20 mg tablet TAKE 1 TABLET BY MOUTH EVERY DAY active Not Available Not Available No t Available hydrochloro thiazide 25 mg tablet TAKE 1 TABLET BY MOUTH EVERY DAY 04/02 completed Not Available Not Available Not Available diclofenac sodium 50 mg tablet,carolyn yed release 04/02 completed Not Available Not Available Not Available fentanyl 25 mcg/hr transdermal patch 11/21 completed Not Available Not Available Not Available levofloxaci n 500 mg tablet 11/21 completed Not Available Not Available Not Available oxycodone-a cetaminophe n 7.5 mg-325 mg tablet 04/02 completed Not Available Not Available Not Available methylpredn isolone 4 mg tablets in a dose pack 04/02 completed Not Available Not Available Not Available hydrocodone 10 mg-acetamin ophen 650 mg tablet TAKE 1 TABLET BY MOUTH EVERY 8 HOURS NEEDED FOR PAIN 04/02 completed Not Available Not Available Not Available oxybutynin chloride 5 mg tablet TAKE ONE TABLET BY MOUTH THREE TIMES A DAY DIRECTED FOR 30 DAYS 10/07 completed Not Available Not Available Not Available morphine 15 mg immediate release tablet 10/07 completed Not Available Not Available Not Available fentanyl 75 mcg/hr transdermal patch APPLY 1 PATCH EVERY 72 HOURS DIRECTED 04/25 completed Not Available Not Available Not Available ondansetron 4 mg disintegrat ing tablet 04/02 completed Not Available Not Available Not Available losartan 100 mg tablet TAKE 1 TABLET BY MOUTH EVERY DAY active Not Available Not Available No t Available fluticasone propionate 50 mcg/actuati on nasal spray,suspe nsion SPRAY 2 SPRAYS BY INTRANASA L ROUTE EVERY DAY DIRECTED active Not Available Not Available No t Available sertraline 50 mg tablet 04/02 completed Not Available Not Available Not Available Vitamin B-12 1,000 mcg tablet 04/02 completed Not Available Not Available Not Available Ventolin HFA 90 mcg/actuati on aerosol inhaler 04/02 completed Not Available Not Available Not Available neomycin 3.5 mg/g-polymy wang B 10,000 unit/g-dexa meth 0.1 % eye oint 04/02 completed Not Available Not Available Not Available divalproex ER 250 mg tablet,exte nded release 24 hr TAKE ONE TABLET BY MOUTH ONCE DAILY AT BEDTIME FOR 30 DAYS 10/07 completed Not Available Not Available Not Available cyclobenzap rine 5 mg tablet 10/07 completed Not Available Not Available Not Available Restasis 0.05 % eye drops in a dropperette 04/02 completed Not Available Not Available Not Available aripiprazol e 5 mg tablet TAKE 1 TABLET BY MOUTH EVERYDAY AT BEDTIME 10/07 completed Not Available Not Available Not Available Klor-Con M20 mEq tablet,exte nded release TAKE 1 TABLET BY MOUTH EVERY DAY WITH HYDROCHLO ROTHIAZID E 04/02 completed Not Available Not Available Not Available topiramate 50 mg tablet 10/07 completed Not Available Not Available Not Available nitrofurant oin monohydrate /macrocryst als 100 mg capsule 10/07 completed Not Available Not Available Not Available duloxetine 60 mg capsule,del ayed release TAKE ONE CAPSULE BY MOUTH EVERY DAY 04/02 completed Not Available Not Available Not Available fentanyl 12 mcg/hr transdermal patch 11/21 completed Not Available Not Available Not Available lidocaine (PF) 10 mg/mL (1 %) injection solution In office injection administe red by the provider 07/01 completed [facility]: [phone] Not Available Not Available Not Available aripiprazol e 2 mg tablet TAKE 1 TABLET BY MOUTH EVERY DAY BEFORE MEALS active Not Available Not Available No t Available Pataday 0.2 % eye drops 04/02 completed Not Available Not Available Not Available FeroSul 325 mg (65 mg iron) tablet active Not Available Not Available Not Available oxycodone 10 mg tablet 04/02 completed Not Available Not Available Not Available cholecalcif jean (vitamin D3) 50 mcg (2,000 unit) capsule TAKE 1 CAPSULE BY MOUTH EVERY DAY BEFORE MEALS FOR 30 DAYS 10/07 completed Not Available Not Available Not Available Toviaz 8 mg tablet,exte nded release 10/07 completed Not Available Not Available Not Available Gavilyte-C 240 gram-22.72 gram-6.72 gram-5.84 gram oral solution 09/22 completed Not Available Not Available Not Available ropivacaine (PF) 5 mg/mL (0.5 %) injection solution Take 20 mg by injection route. 10/07 completed [facility] [phone] Not Available Not Available Not Available Myrbetriq 25 mg tablet,exte nded release TAKE 1 TABLET BY MOUTH EVERY DAY DIRECTED active Not Available Not Available No t Available Vitals Date Recorded Body height Provider Name an d Address Organization Details Last Updated DateTime 09/22/2022 152.4 cm Mel Courtneyrosa m Vanessa [facility] [employer] [facility] 09/22/2022 10:02:36 Date Recorded Body height Provider Name an d Address Organization Details Last Updated DateTime 09/26/2022 152.4 cm Maye Montero MA [facility] [employer] [facility] 09/26/2022 10:57:30 Date Recorded Body height Body mass index (BMI) Body weight Provider Name and Address Organization Details Last Updated DateTime 10/07/2022 152.4 cm 35.2 kg/m2 15971.63 danica Mel Irwin Vanessa [facility] [employer] [facility] 10/07/2022 10:51:13 Date Recorded Body height Body mass index (BMI) Body weight Provider Name and Address Organization Details Last Updated DateTime 11/04/2022 152.4 cm 36.1 kg/m2 35175.59 danica Stephanoriana Alida [facility] [employer] [facility] [employer] [facility] 11/04/2022 10:58:20 Date Recorded Body height Body mass index (BMI) Body weight Provider Name and Address Organization Details Last Updated DateTime 01/19/2023 152.4 cm 35.2 kg/m2 07119.63 danica Collins [facility] [employer] 01/19/2023 12:48:52 Social History Question Answer Notes LastModified by Organizat ion Details LastModified Time Tobacco Smoking Status Never Smoker Not Available [facility] 09/14/2022 02:39:40 What Is Your Level Of Alcohol Consumption? None [id number] Information not available 09/14/2022 Sex: Unknown Functional Status None recorded. Mental Status None recorded. Family History Relationship Description Onset Age of this Age Resolved Age Notes LastModified by Organization Details LastModified Time Father Heart disease [id number] Not available 09/14/2022 02:44:58 Father Family history of malignant neoplasm [id number] Not available 09/14/2022 02:44:58 Mother Family history of stroke [id number].559 [id number] Not available 09/14/2022 02:44:59 Unspecified Relation Deep venous thrombosis [id number] [id number] Not available 09/14/2022 02:44:59 Unspecified Relation Diabetes mellitus [id number].644 [id number] Not available 09/14/2022 02:44:59 Unspecified Relation Kidney disease MIGRATION.731 [id number] Not available 09/14/2022 02:44:59 Medical History Condition Response ARTHRITIS Y HEADACHES/MIGRAINES Y URINARY/BLADDER/KIDNEY PROBLEMS Y HYPERTENSION Y Gynecological HistoryNo gynecological history recorded. Obstetrics History GPAL:G 0 P 0 0 0 0 Past Encounters Encounter ID Performer Location Encounter Start Date Encounter Closed Date Diagnosis/Indication Diagnosis SNOMED-CT Code Diagnosis ICD10 Code Diagnosis Note [id number] [facility] [address] [place], [place] [address] 09/28/2020 00:00:00 10/02/2020 09:57:06 [id number] [facility] [address] [place] [address] 07/01/2021 00:00:00 07/01/2021 15:04:45 [id number] [facility] [address] [place] [address] 07/27/2021 00:00:00 07/27/2021 15:19:17 [id number] [facility] [place] [address] [place] [address] 08/24/2021 00:00:00 08/24/2021 15:38:25 [id number] [facility] [place] [address] [place] [address] 09/27/2021 00:00:00 09/27/2021 13:48:20 [id number] [facility] [place] [address] [place] [address] 02/07/2022 00:00:00 02/07/2022 11:58:02 [id number] [facility] [place] [address] [place] [address] 03/07/2022 00:00:00 03/07/2022 11:14:48 [id number] [facility] [place] [address] [place] [address] 2022 00:00:00 2022 11:19:59 [id number] Juan Durán MD [facility] [place] [address] [place] [address] 09/22/2022 09:39:35 09/22/2022 11:05:01 Pain in right hip joint [id number] 66939 M25.551 Pain of ri ght knee joint 9872972817 55712 M25.561 Derangemen t of right knee 4699206924 4822797 M23.91 Tear of me dial meniscus of knee 106321633 S83.241D Osteoarthr itis of right knee joint 3189695805 03525 M17.11 [id number] Roland Garcia DPM [facility] [place] [address] [place] [address] 09/26/2022 10:46:29 09/26/2022 14:10:32 Pain in both feet 0554368380 9128347 M79.671 M79.672 as above Osteoarthritis 560682894 M19.90 both feet xrays reviewedRe viewed options with the patientCan supportive shoe gear and recommend over-the-c ounter orthoticsA nti-inflam matories otcrice therapyx-r ays reviewed with the patientwil l monitor as needed Dystrophia unguium 36514 009 L60.3 Nails 1 through 10 were debrided with sharp mechanical debridemen t without incident. Nails were debrided and greater than 50% length and thickness where needed. [id number] Juan Larry MD [facility] [place] [address] [place] [address] 10/07/2022 10:46:19 10/07/2022 11:20:24 Pain of right shoulder joint 3530038978 2407698 M25.511 Pain of ri ght knee joint 9392883163 46516 M25.561 Closed fra cture of proximal right humerus 7313536287 0920493 S42.201A [id number] Juan Larry MD [facility] [place] [address] [place] [address] 11/04/2022 10:55:27 11/04/2022 12:00:21 Pain of right shoulder joint 2217277340 8389489 M25.511 Pain of ri ght knee joint 7039174794 83672 M25.561 Closed fra cture of proximal right humerus 7052645919 5297536 S42.201A Pain of left hand 218635 7340 52830 M79.642 Pain in fi nger of left hand 6767705970 85427 M79.645 [id number] Juan Durán MD [facility] [place] [address] [place] [address] 01/19/2023 12:19:35 01/19/2023 13:41:13 Pain of left hand [id number] 53799 M79.642 Health Concerns Section Related Observation LastModified by Organization Detai ls LastModified Time None Recorded Concern Status LastModified by Organization Details LastModified Time None Recorded Advance Directives Directive None Recorded Payers Encounter Date Sequence Insurance Name Policy Number Policy Lu Covered Member ID Lu Member ID Guarantor Name 09/22/2022 1 [place] [facility] Rosa Horan [id number] Rosa Horan 09/26/2022 1 [place] [facility] Rosa Horan [id number] Rosa Horan 10/07/2022 1 [place] [facility] Rosa Horan [id number] Rosa Horan 11/04/2022 1 [place] [facility] Rosa Horan [id number] Rosa Horan 01/19/2023 1 [place] [facility] Rosa Horan [id number] Rsoa Horan Notes Date Note Type Note Provider Name and Address Organization Details Recorded Time 09/22/2022 text/html KneeReported bypatient.Location: right Quality:aching; throbbing; dull Severity:moderate Duration:continuous since onset Timing:chronic Alleviating Factors:sitting; lying down; rest; elevation Aggravating Factors:bending/squ atting; weightbearing Associated Symptoms:no weakness; no numbness; no tingling; no redness; no ecchymosis; no catching/locking; no popping/clicking; no buckling; no instability; no radiation down leg; no drainage; no fever; no chills; no weight loss; no change in bowel/bladder habits;swelling;war mth;grinding Juan Durán MD [address], [facility] [address], [place], [address], [employer] 09/22/2022 10:54:46 09/26/2022 text/html . Patient is a 77-year-old female who presents the office with complaints of bilateral foot pain to the midfoot and forefoot. Patient states that she has I mild throbbing pain in both of her feet daily. Patient states the pain is worse at night. Patient denies any wounds or injury of her foot. Patient denies any other pedal complaints. Roland Garcia DPM [address], [facility] [address], [place], [address], [employer] 09/26/2022 14:07:33 01/19/2023 text/html Patient returns contusion left hand. She is tender left hand at the PIP joint 3rd finger she has had pain now for several months worse with activity somewhat relieved by rest she has pain with most motion. Juan Durán MD [address], [facility] [address], [place], [address], [employer] 01/19/2023 13:19:01 OBGyn Episode No OBEpisode recorded.
--- OUTSIDE RECORDS SUMMARY | 2024-09-04 00:34 | XMS_ITS | Clinical Summary ---
Author Organization [facility] Address [facility] [place] [address] Care Team Providers Care [employer] Name Role Phone Non-Staff, Provider Primary Care Provider Unavai lable Allergies No known active allergies Medications ARIPiprazole (ABILIFY) 2 MG tablet Take 1 tablet (2 mg total) by mouth daily. 06/25/2024 Active diclofenac EC (VOLTAREN) 75 MG tablet Take 1 tablet (75 mg total) by mouth 2 (two) times daily. 06/26/2024 Active isosorbide mononitrate ER (IMDUR) 30 MG 24 hr tablet Take 1 tablet (30 mg total) by mouth daily. 06/20/2024 Active losartan (COZAAR) 100 MG tablet Take 1 tablet (100 mg total) by mouth daily. 06/08/2024 Active MYRBETRIQ 50 MG 24 hr tablet Take 1 tablet (50 mg total) by mouth daily. 05/20/2024 Active pravastatin (PRAVACHOL) 20 MG tablet Take 1 tablet (20 mg total) by mouth daily. Active sertraline (ZOLOFT) 100 MG tablet Take 2 tablets (200 mg total) by mouth daily. Active spironolactone (ALDACTONE) 25 MG tablet Take 2 tablets (50 mg total) by mouth daily. 06/11/2024 Active traMADol (ULTRAM) 50 MG tablet Take 2 tablets (100 mg total) by mouth 2 (two) times daily as needed for Pain. Active Encounters Date Type Department Care Team Description 06/28/2024 5:38 PM LEGAL INSTRUMENTS EXAMINER - 06/28/2024 8:25 PM [facility] Emergency [facility] [place] [address] Anshul Daly MD Chest Pain Discharge Disposition: Home or Self Care (Routine Discharge) 06/28/2024 Travel from Last 3 Months Social History Tobacco Use Types Packs/Day Years Used Date Smoking Tobacco: Never Smokeless Tobacco: Never Tobacco Cessation:Counseling Given: Not Answered Alcohol Use Standard Drinks/Week Comments Not Currently 0 (1 standard drink = 0.6 oz pur e alcohol) Comments Unknown Sex and Gender Information Value Date Recorded Sex Assigned at Not on file Legal Sex Female 6:15 PM CDT Gender Identity Not on file Sexual Orientation Not on file Last Filed Vital Signs Vital Sign Reading Time Taken Comments Blood Pressure 141/67 06/28/2024 8:00 PM LEGAL INSTRUMENTS EXAMINER Pulse 71 06/28/2024 8:00 PM LEGAL INSTRUMENTS EXAMINER Temperature 36.1 C (97 F) 06/28/2024 5:25 PM LEGAL INSTRUMENTS EXAMINER Respiratory Rate 17 06/28/2024 8:00 PM LEGAL INSTRUMENTS EXAMINER Oxygen Saturation 96% 06/28/2024 8:00 PM LEGAL INSTRUMENTS EXAMINER Inhaled Oxygen Concentration - - Weight 99.3 kg (219 lb) 06/27/2007 4:54 AM LEGAL INSTRUMENTS EXAMINER Height 152.4 cm (5') 06/28/2024 5:25 PM LEGAL INSTRUMENTS EXAMINER Body Mass Index 37.59 06/27/2007 4:54 AM LEGAL INSTRUMENTS EXAMINER Plan of Treatment Health Maintenance Due Date Last Done Comments Meningococcal Vaccine (1 - Risk 2-dose series) 1945 Meningococcal B Vaccine (1 of 5 - Increased Risk) 1953 DTaP, Tdap and Td Vaccines (1 - Tdap) 1962 Zoster Vaccines (1 of 2) 1993 Dexa Scan (General) 2008 RSV Immunization or 60+ Years (1 - 1-dose 75+ series) 2018 COVID-19 Vaccine ( season) 2024 05/22/2023, 09/14/2021, 09/28/2020 Pneumococcal Vaccine: 65+ Years Completed 07/30/2019, 03/08/2017, 07/17/2008 Influenza Adult Completed 04/04/2024, 1108/2022, 05/27/2022, Additional history exists RSV Immunizations Under 20 Months Aged Out No longer eligible based on patient's age to complete this topic Procedures Procedure Name Priority Date/Time Associated Diagnosis Comments TROPONIN, QUANT STAT 06/28/2024 7:27 PM LEGAL INSTRUMENTS EXAMINER ECG 12-LEAD STAT 06/28/2024 7:23 PM LEGAL INSTRUMENTS EXAMINER XR CHEST PORTABLE STAT 06/28/2024 5:4 2 PM LEGAL INSTRUMENTS EXAMINER ECG 12-LEAD STAT 06/28/2024 5:25 PM LEGAL INSTRUMENTS EXAMINER TROPONIN, QUANT STAT 06/28/2024 5:21 PM LEGAL INSTRUMENTS EXAMINER COMPREHENSIVE METABOLIC PANEL STAT 06/28/2024 5:21 PM LEGAL INSTRUMENTS EXAMINER CBC W/DIFF AUTOMATED STAT 06/28/2024 5:21 PM LEGAL INSTRUMENTS EXAMINER from Last 3 Months Results * TROPONIN, QUANT (06/28/2024 7:27 PM LEGAL INSTRUMENTS EXAMINER) Only the most recent of2 resultswithin the time period is included. TROPONIN I HIGH SENSITIVITY 6 <54 ng/L 06/28/2024 8:05 [address] LEGAL INSTRUMENTS EXAMINER [facility] Comment: HIGH DOSES OF BIOTIN, TROPONIN-SPECIFIC AUTOANTIBODIES, AND ANTIBODY THERAPY CONTAINING HAMA MAY INTERFERE WITH THIS TEST RESULT. CORRELATION TO CLINICAL HISTORY AND PRESENTATION RECOMMENDED. 06/28/2024 7:27 PM LEGAL INSTRUMENTS EXAMINER Anshul Daly MD LABORATORY Final Result [facility] [address] [place] [address], [place] [phone] * ECG 12 lead (06/28/2024 7:23 PM LEGAL INSTRUMENTS EXAMINER) Only the most recent of2 resultswithin the time period is included. 06/28/2024 7:23 PM LEGAL INSTRUMENTS EXAMINER Narrative [facility] JILLIAN DOVER) RAD - 06/29/2024 10:12 AM LEGAL INSTRUMENTS EXAMINER [facility] Test Date: 2024-06-28 Pat Name: EVON DOWNEY Department: 41 Room: EXAM06 Gender: Female Breast Splitter: : 1945 Requested By: IKER EMERSON Order Number: [id number] Reading MD: Riky Hooker Measurements Intervals Raymond Rate: 71 P: 48 WV: 181 QRS: 15 QRSD: 84 T: 53 QT: 399 QTc: 436 Interpretive Statements SINUS RHYTHM Compared to ECG 06/28/2024 17:25:49 No significant changes L INSTRUMENTS EXAMINER Procedure Note Riky Hooker MD - 06/29/2024 [facility] [address] [place] [address] Test Date: 2024-06-28 Pat Name: EVON DOWNEY Department: 41 Room: EXAM06 Gender: Female Breast Splitter: : 1945 Requested By: IKER EMERSON Order Number: [id number] Reading MD: Riky Hooker Measurements Intervals Raymond Rate: 71 P: 48 WV: 181 QRS: 15 QRSD: 84 T: 53 QT: 399 QTc: 436 Interpretive Statements SINUS RHYTHM Compared to ECG 06/28/2024 17:25:49 No significant changes L INSTRUMENTS EXAMINER us Anshul Daly MD ECG ORDERABLES Final Result [facility] * XR CHEST PORTABLE (06/28/2024 5:42 PM LEGAL INSTRUMENTS EXAMINER) Anatomical Region Laterality Modality Chest Radiographic Makenzie ging 06/28/2024 5:45 PM LEGAL INSTRUMENTS EXAMINER Impressions 06/28/2024 5:45 PM LEGAL INSTRUMENTS EXAMINER IMPRESSION: No active cardiopulmonary disease. Ordered By: IKER EMERSON Interpreted By: Ibrahima Carter MD, 06/28/2024 5:45 PM Narrative 06/28/2024 5:45 PM LEGAL INSTRUMENTS EXAMINER [address] [address] 06/28/2024, 1728 hours. HISTORY: Chest pain. EXAM: Portable erect AP chest. No comparison. FINDINGS: The lungs are clear of active infiltrates. The heart size and pulmonary vascularity are within normal limits. No pleural effusion. No pneumothorax. Mild scoliosis. Procedure Note Ibrahima Carter MD - 06/28/[address] [address] 06/28/2024, 1728 hours. HISTORY: Chest pain. EXAM: Portable erect AP chest. No comparison. FINDINGS: The lungs are clear of active infiltrates. The heart size andpulmonary vascularity are within normal limits. No pleural effusion. Nopneumothorax. Mild scoliosis. IMPRESSION: No active cardiopulmonary disease. Ordered By: IKER EMERSON Interpreted By: Ibrahima Carter MD, 06/28/2024 5:45 PM Anshul Daly MD GENERAL IMAGING Final Result * (ABNORMAL) COMPREHENSIVE METABOLIC PANEL (06/28/2024 5:21 PM LEGAL INSTRUMENTS EXAMINER) GLUCOSE 113(H) 70 - 99 MG/DL 06/28/2024 6:05 PM LEGAL INSTRUMENTS EXAMINER [facility] BUN 27(H) 7 - 18 MG/DL 06/28/2024 6:05 PM LEGAL INSTRUMENTS EXAMINER [facility] CREATININE S/P/B 0.87 0.55 - 1.02 MG/DL 06/28/2024 6:05 PM LEGAL INSTRUMENTS EXAMINER [facility] SODIUM S/P/B 140 136 - 145 MMOL/L 06/28/2024 6:05 PM [facility] POTASSIUM S/P/B 3.3(L) 3.5 - 5.1 MMOL/L 06/28/2024 6:05 PM [facility] CHLORIDE S/P/B 107 97 - 115 MMOL/L 06/28/2024 6:05 PM [facility] CO2 28.3 21 - 32 MMOL/L 06/28/2024 6:05 PM [facility] CALCIUM S/P/B 8.8 8.5 - 10.1 MG/DL 06/28/2024 6:05 PM [facility] BILIRUBIN TOTAL S/P/B 0.3 0.2 - 1.2 MG/DL 06/28/2024 6:05 PM [facility] Comment: THIS ASSAY IS NOT RECOMMENDED FOR PATIENTS UNDERGOING TREATMENT WITH ELTROMBOPAG DUE TO THE POTENTIAL FOR FALSELY ELEVATED RESULTS. TOTAL PROTEIN S/P/B 7.3 6.4 - 8.2 G/DL 06/28/2024 6:05 PM [facility] ALBUMIN S/P/B 3.6 3.4 - 5.0 G/DL 06/28/2024 6:05 PM [facility] AST 25 15 - 37 U/L 06/28/2024 6:05 PM [facility] ALT 23 14 - 55 U/L 06/28/2024 6:05 PM [facility] ALKALINE PHOSPHATASE S/P/B 85 50 - 136 U/L 06/28/2024 6:05 PM [facility] ANION GAP 4.7 2 - 10 MMOL/L 06/28/2024 6:05 PM [facility] BUN CREATININE RATIO 31.0(H) 6 - 26 06/28/2024 6:05 PM [facility] A/G RATIO 1.0 1.0 - 2.0 RATIO 06/28/2024 6:05 PM [facility] GFR ESTIMATE 67(L) >90 ML/MIN/1.7 3 M2 06/28/2024 6:05 PM [facility] Comment: NOTE: eGFR is not calculated for patients <18 years of age or gender unknown. This is an estimated GFR calculation using the new CKD EPI creatinine equation without race and so does not require a correction factor for race. This estimated GFR should not be used for calculating drug doses. 06/28/2024 5:21 PM LEGAL INSTRUMENTS EXAMINER us Anshul Daly MD LABORATORY Final Result [facility] [address] [place] [address], * (ABNORMAL) CBC W/DIFF AUTOMATED (06/28/2024 5:21 PM LEGAL INSTRUMENTS EXAMINER) WBC 7.84 4.5 - 11.0 x10'3/uL 06/28/2024 6:04 PM [facility] RBC 4.35 4.20 - 5.40 x10'6/uL 06/28/2024 6:04 PM [facility] HGB 11.6(L) 12.0 - 16.0 G/DL 06/28/2024 6:04 PM [facility] HCT 37.4(L) 38.0 - 48.0 % 06/28/2024 6:04 PM [facility] MCV 86.0 81.0 - 99.0 FL 06/28/2024 6:04 PM [facility] MCH 26.7(L) 27.0 - 31.0 PG 06/28/2024 6:04 PM LEGAL INSTRUMENTS EXAMINER [facility] MCHC 31.0(L) 32.0 - 36.0 G/DL 06/28/2024 6:04 PM [facility] RDW 14.0 11.5 - 14.5 % 06/28/2024 6:04 PM [facility] PLT 164 130 - 400 x10'3/uL 06/28/2024 6:04 PM [facility] MPV 12.7(H) 9.3 - 12.2 FL 06/28/2024 6:04 PM [facility] DIFFERENTIAL TYPE AUTOMATED DIFFERENTIAL 06/28/2024 6:04 PM [facility] NEUTROPHILS % 42.2 % 06/28/2024 6:04 PM [facility] LYMPHOCYTES % 48.2 % 06/28/2024 6:04 PM [facility] MONOCYTES % 5.7 % 06/28/2024 6:04 PM [facility] EOSINOPHILS 3.2 % 06/28/2024 6:04 PM [facility] BASOPHILS 0.4 % 06/28/2024 6:04 PM [facility] IMMATURE GRANS % 0.3 % 06/28/20 6:04 PM [facility] ABS. NEUTROPHILS 3.31 1.80 - 7.70 x10'3/uL 06/28/2024 6:04 PM [facility] ABS. LYMPHOCYTES 3.78 1.00 - 4.80 x10'3/uL 06/28/2024 6:04 PM [facility] ABS. MONOCYTES 0.45 0.24 - 0.86 x10'3/uL 06/28/2024 6:04 PM [facility] ABS. EOSINOPHILS 0.25 0.04 - 0.36 x10'3/uL 06/28/2024 6:04 PM LEGAL INSTRUMENTS EXAMINER [facility] ABS. BASOPHILS 0.03 0.01 - 0.08 x10'3/uL 06/28/2024 6:04 PM LEGAL INSTRUMENTS EXAMINER [facility] ABS. IMMATURE GRANULOCYTES 0.02 0.00 - 0.49 x10'3/uL 06/28/2024 6:04 PM LEGAL INSTRUMENTS EXAMINER [facility] 06/28/2024 5:21 PM LEGAL INSTRUMENTS EXAMINER us Anshul Daly MD LABORATORY Final Result [facility] [address] [place] [address], [place] [phone] from Last 3 Months Insurance MEDICAID Care Teams [employer] Relationship Specialty Start Date End Date Non-Staff, Provider PCP - General UNKNOWN PHYSICIAN SPECIALTY 06/28/24
[2024-09-04] MEDS: LACTATED RINGERS 1,000 ML 30 ML IV CONT (09:50)
[2024-09-04] MEDS: ACETAMINOPHEN 500 MG TABLET 1000 MG PO (10:00)
[2024-09-04] MEDS: KETOROLAC 15 MG/ML VIAL (*BKC) IV PUSH (10:00)
--- NOTE | 2024-09-04 10:14 | WPDHPUPDATE1 ---
History and Physical Update Update Date/Time: 09/04/24 10:14 History and Physical has been reviewed, including an updated exam of the patient. There are NO changes in the patient's condition. Risks, benefits, and alternatives have been discussed and questions answered. Patient agrees to proceed with procedure.
--- NOTE | 2024-09-04 10:30 | P.PNAN_ITS ---
Anes - Initial Pre Proc Eval Procedure: Operation Date: 09/04/24 11:30 Proposed Procedures p Release A-1 Krystian Left Thumb - Juan Durán MD Date/Time: 09/04/24 10:30 Surgeon: Juan Durán MD Pre Op Diagnosis: Left Thumb Trigger Finger Patient Data Age: 79 Gender: F Height: 1.52 m Weight: 78 kg Allergies Allergy/AdvReac Type Severity Reaction Status Date / Time No Known Allergies Allergy Verified 09/04/24 10:26 Home Medications ?Medication ?Instructions ?Recorded ?Confirmed ?Type carvedilol 12.5 mg tablet 12.5 mg PO BID 09/28/22 09/04/24 History acetaminophen 500 mg capsule 1,000 mg PO Q6H PRN Pain 06/26/23 08/23/24 History aripiprazole 2 mg tablet 2 mg PO BID 06/26/23 09/04/24 History aspirin 81 mg tablet,delayed 81 mg PO DAILY 06/26/23 09/04/24 History release (Adult Low Dose Aspirin) cholecalciferol (vitamin D3) 25 25 mcg PO DAILY 06/26/23 09/04/24 History mcg (1,000 unit) tablet isosorbide mononitrate 30 mg 30 mg PO DAILY 06/26/23 09/04/24 History tablet,extended release 24 hr losartan 100 mg tablet 100 mg PO DAILY 06/26/23 09/04/24 History mirabegron 25 mg tablet,extended 25 mg PO DAILY 06/26/23 09/04/24 History release 24 hr (Myrbetriq) multivitamin 1 tablet PO DAILY 06/26/23 09/04/24 History pravastatin 20 mg tablet 20 mg PO DAILY 06/26/23 09/04/24 History sertraline 100 mg tablet 100 mg PO BID 06/26/23 09/04/24 History spironolactone 25 mg tablet 50 mg PO DAILY 06/26/23 09/04/24 History Laboratory Tests 09/04/24 10:15 Sodium Pending Potassium Pending Chloride Pending Carbon Dioxide Pending Anion Gap Pending BUN Pending Creatinine Pending Estim Creat Clear Calc Pending Estimated GFR Pending Glucose Pending Calcium Pending Patient hx anesthesia problems: none Family hx anesthesia problems: none Results Review: All pre-operative results and documents have been reviewed as part of the pre- operative evaluation. [facility] Past Medical History Medical History (Updated 09/04/24 @ 10:31 by Bon Abraham DO) Stroke no residual Hypertension Headache Tubal ligation evaluation Obesity Surgical History Surgical History History of hand surgery Right hand trigger finger release History of carpal tunnel surgery of right wrist Dr Durán History of shoulder surgery Right RTC- Dr Durán History of splenectomy History of orthopedic surgery Family History Family History (Updated 08/15/24 @ 10:15 by Dilia Byers CMA) Mother Hypertension Heart disease Cerebrovascular accident Social History Social History (Updated 08/15/24 @ 10:13 by Judit Canales CMA) Smoking status: Never smoker Alcohol intake: never Substance use type: does not use Do You Feel Safe in your Home?: Yes Lack of Transportation: No Lack of Food: Sometimes True Current Housing: I Have Housing Concerned About Future Housing: No Difficulty Paying Gas/Electric Bills: No Difficulty Paying for Meds: No Currently Unemployed: No Education: High School Diploma/GED Difficulty w/ Childcare or Family Care: No Living arrangements: alone Occupation/Education: retired Gender identity (if verbalized by the patient): Female Spiritual care concerns: No Anes - Eval Final PreProcedure Day of Procedure 09/04/24 10:30 Patient weight: obese Heart: regular rate and rhythm Lungs: clear to auscultation Airway: Mallampati scale class II Neurological: alert and oriented Last oral intake: >/= 8 hours ASA classification: III Emergent: no Anesthetic plan: proceed Anesthesia type and monitoring: general GIVS and standard monitoring Results Review: All pre-operative results and documents have been reviewed as part of the pre- operative evaluation. Informed Consent: The patient's anesthetic plan and its attendant risks and benefits were discussed with the patient/family/POA. Questions were solicited and answers provided to the satisfaction of the patient/family/POA.
[2024-09-04 10:31] VITALS: BP 158/100; PULSE 98; RESP 16; TEMP 36.6; O2SAT 99
[2024-09-04 10:31] LABS: Anion Gap 6 mmol/L (4-12); Blood Urea Nitrogen 21 mg/dL (7-17); Calcium 9.4 mg/dL (8.4-10.2); Carbon Dioxide 26 mmol/L (22-30); Chloride 107 mmol/L (98-107); Estimated CRCL calculation 57 ml/min; Estimated Glomerular Filt Rate > 60; Glucose 91 mg/dL (65-110); Potassium 3.3 mmol/L (3.4-5.0); Sodium 139 mmol/L (137-145)
[2024-09-04] MEDS: LIDOCAINE 1% LOCAL INJ 10 ML VIAL 6 ML INFILTRATE (10:37)
[2024-09-04] MEDS: ceFAZolin 2 GM/D5W 50 ML 2 GM/50 ML BAG IVPB (10:37)
--- NOTE | 2024-09-04 11:00 | W.PM.PROC2 ---
Procedure Note - Detailed Date of Procedure 09/04/24 Pre-op Diagnosis Left Thumb Trigger Finger Post-op Diagnosis Same Procedure Performed Release A1 Pavel Surgeon Juan Durán MD Anesthesia General Findings Pain and Catching Description of Procedure Patient brought to operating room 5. General anesthetic was administered. She was sterilely prepped and draped in usual manner. After identifying the correct side local in both plate placed along the line of the proximal thenar crease. Dissection carried down the through the skin. Then I bluntly dissected protect the neurovascular bundles to the A1 pavel. This was identified released under direct vision the tendon had full excursion at this point. The wound irrigated. Hemostasis obtained. Closed with 3-0 Prolene. Sterile dressing applied patient tolerated procedure well. Estimated Blood Loss 5 Complications No immediate complications Condition Stable Disposition PACU [facility] Billing Surgery - Charge Forward: Surgery Billing ([id number] Trigger Thumb Left)
[2024-09-04 11:08] VITALS: BP 137/63; PULSE 68; RESP 12; O2SAT 98
[2024-09-04 11:30] VITALS: BP 179/66; PULSE 66; O2SAT 100
[2024-09-04 12:00] VITALS: BP 154/88; PULSE 68
[2024-09-04] MEDS: oxyCODONE HCL (*CRX) 5 MG TAB IR PO (12:16)
[2024-09-04 12:30] VITALS: BP 146/60; PULSE 72; RESP 20
[2024-09-04 12:40] VITALS: BP 154/82; PULSE 80; RESP 20
== END 2024-09-04 12:50 | disposition home or self-care (01) ==
PROVIDERS: Nurse Anesthetist, Certified Registered; PCP Internal Medicine Infectious Disease; Visit Provider Orthopaedic Surgery
PROC: (CPT 26055; principal; 2024-09-04 11:30)
DX: M65.312 Trigger thumb, left thumb (principal); I10 Essential (primary) hypertension; E66.9 Obesity, unspecified; Z68.33 Body mass index [BMI] 33.0-33.9, adult; Z79.82 Long term (current) use of aspirin; Z98.890 Other specified postprocedural states; Z86.73 Personal history of transient ischemic attack (TIA), and cerebral infarction without residual deficits; Z82.49 Family history of ischemic heart disease and other diseases of the circulatory system
CPT/HCPCS: 26055; 36415; 80048; A9270; J0690; J1885; J2003; J2371; J2405; J2704; J3010; J7120